=== PATIENT | female | born 1950 | race Caucasian/White ===

== ENCOUNTER → 2017-11-23 | Outpatient (CLI) | payer BC, MEDICARE ==
[~2017-11-23] MED LIST: OMNIPAQUE 350 MG/ML, 100ML BOTTLE ONE
== END | disposition home or self-care (01) ==
LOC: CFH 11:50
PROVIDERS: ATTEND Thoracic Surgery (Cardiothoracic Vascular Surgery)
DX: I35.8 Other nonrheumatic aortic valve disorders (principal); I71.2 Thoracic aortic aneurysm, without rupture
CPT/HCPCS: 71275; Q9967

== ENCOUNTER 2017-11-29 11:38 | Inpatient (IN) | payer MEDICARE, BC ==
[~2017-11-29] VITALS: Ht 157.5 cm; Wt 87.6 kg
[2017-11-29 14:47] LABS: MICROSCOPIC NOT IND
[2017-11-29 14:49] LABS: BASOPHILS # (AUTO) 0.03 x10^3/uL (0-0.1); BASOPHILS % (AUTO) 0 % (0-1); EOSINOPHILS # (AUTO) 0.04 x10^3/uL (0-0.4); EOSINOPHILS % (AUTO) 1 % (1-7); LYMPHOCYTES # (AUTO) 1.53 x10^3/uL (1-3.4); LYMPHOCYTES % (AUTO) 22 % (22-44); MD NO; MEAN CORPUSCULAR HEMOGLOBIN 29.5 pg (27.0-34.8); MEAN CORPUSCULAR HGB CONC 33.7 g/dL (32.4-35.8); MEAN CORPUSCULAR VOLUME 87.6 fL (80-100); MEAN PLATELET VOLUME 8.5 fL (7.4-10.4); MONOCYTES % (AUTO) 7 % (2-9); NEUTROPHILS % (AUTO) 70 % (42-75); PLATELET COUNT 249 x10^3/uL (130-400); RED BLOOD COUNT 5.12 x10^6/uL (3.82-5.3); RED CELL DISTRIBUTION WIDTH 13.9 % (9.6-15.2)
[2017-11-29 14:54] LABS: INTERNATIONAL NORMALIZED RATIO 0.97 (0.93-1.1)
[2017-11-29] MEDS ORDERED: OMEP20TA62 PO (14:54)
[2017-11-29 14:57] LABS: ANION GAP 8 mmol/L (5-15); CALCIUM 9.6 mg/dL (8.5-10.1); CHLORIDE 103 mmol/L (98-107)
[2017-11-29 15:00] LABS: ALANINE AMINOTRANSFERASE 28 U/L (12-78); ALKALINE PHOSPHATASE 107 U/L (45-117); BILIRUBIN,TOTAL 0.5 mg/dL (0.2-1.0); CREATININE 0.86 mg/dL (0.55-1.02); TOTAL PROTEIN 7.9 g/dL (6.4-8.2)
[2017-11-29 15:24] LABS: HEMOGLOBIN A1C 5.9 % (4.2-6.3)
[2017-11-30 04:38] VITALS: BP_SYST 125; BP_SYST 130; BP_DIAS 84; BP_DIAS 86
[2017-11-30] MEDS ORDERED: CHLORHEXIDINE 15 ML BOTTLE MM SCH (05:00)
[2017-11-30] MEDS ORDERED: ALBUMIN HUMAN 5% 500 ML IV PRN (05:00)
[2017-11-30] MEDS ORDERED: INSULIN LISPRO 100 UNITS/ML, PEN SQ-INSULIN SCH (05:00)
[2017-11-30] MEDS ORDERED: FENTANYL PF 250 MCG/5ML ONE ×4 (06:39→06:40)
[2017-11-30] MEDS ORDERED: MIDAZOLAM 10MG/2 ML ONE (06:39)
[2017-11-30] MEDS ORDERED: EPINEPHRINE 2 MG in SODIUM CHLORIDE 0.9% 248 ML IV SCH (07:30)
[2017-11-30] MEDS ORDERED: PHENYLEPHRINE 10 MG in SODIUM CHLORIDE 0.9% 249 ML IV PRN ×2 (07:30→10:20)
[2017-11-30] MEDS ORDERED: POTASSIUM CHLORIDE 80 MEQ, SODIUM BICARBONATE 8.4% 10 MEQ, MAGNESIUM SULFATE 0.5 GM, LI... IV PRN (07:30)
[2017-11-30] MEDS ORDERED: CEFUROXIME 1.5 GM in SODIUM CHLORIDE 0.9% 50 ML IVPB PRN (07:30)
[2017-11-30] MEDS ORDERED: VANCOMYCIN 1,400 MG in SODIUM CHLORIDE 0.9% 250 ML IV PRN (07:30)
[2017-11-30] MEDS ORDERED: DEXMEDETOMIDINE 200 MCG in SODIUM CHLORIDE 0.9% 48 ML IV SCH (07:30)
[2017-11-30] MEDS ORDERED: MANNITOL PMX 20% 500 ML IVPB PRN (07:30)
[2017-11-30] MEDS ORDERED: REGULAR INSULIN 62.5 UNITS in SODIUM CHLORIDE 0.9% 249.375 ML IV PRN ×2 (07:30→10:20)
[2017-11-30] MEDS ORDERED: SODIUM CHLORIDE FLUSH 10ML SYR IVF SCH (09:00)
[2017-11-30] MEDS: DOCUSATE 100 MG CAPSULE PO SCH ×2 (09:00→21:25)
[2017-11-30] MEDS ORDERED: MUPIROCIN OINT 2%, 22GM TP SCH (09:00)
[2017-11-30] MEDS ORDERED: VASOPRESSIN 20 UNIT/ML, 1ML ONE (09:10)
[2017-11-30] MEDS ORDERED: CALCIUM CHLORIDE 10%, 10ML SYR ONE (09:10)
[2017-11-30] MEDS ORDERED: ROCURONIUM 10MG/ML,5ML ONE ×3 (09:10)
[2017-11-30] MEDS ORDERED: PROTAMINE SULFATE 10 MG/ML, 25ML ONE ×2 (09:10)
[2017-11-30] MEDS ORDERED: PHENYLEPHRINE 10 MG/ML ONE (09:10)
[2017-11-30] MEDS ORDERED: PROPOFOL 10 MG/ML, 20ML ONE (09:10)
[2017-11-30] MEDS ORDERED: AMIODARONE 50 MG/ML, 3ML ONE (09:37)
[2017-11-30] MEDS ORDERED: SODIUM CHLORIDE 0.9% 1,000 ML IV PRN (10:20)
[2017-11-30] MEDS ORDERED: VASOPRESSIN 50 UNIT in SODIUM CHLORIDE 0.9% 247.5 ML IV PRN (10:20)
[2017-11-30] MEDS ORDERED: DOBUTAMINE 250 MG in SODIUM CHLORIDE 0.9% 230 ML IV PRN (10:20)
[2017-11-30] MEDS ORDERED: DEXMEDETOMIDINE 200 MCG in SODIUM CHLORIDE 0.9% 48 ML IV PRN (10:20)
[2017-11-30] MEDS ORDERED: NITROGLYCERIN/D5W PMX 250 ML IV PRN (10:20)
[2017-11-30] MEDS ORDERED: BISACODYL 10 MG SUPP PR PRN (10:30)
[2017-11-30] MEDS ORDERED: MAGNESIUM SULFATE 1 GM in SODIUM CHLORIDE 0.9% 50 ML IVPB SCH (10:30)
[2017-11-30] MEDS ORDERED: DEXTROSE 4 GM TAB.CHEW PO PRN (10:30)
[2017-11-30] MEDS ORDERED: PROCHLORPERAZINE 5 MG/ML, 2ML IVPush PRN (10:30)
[2017-11-30] MEDS ORDERED: DEXTROSE 50%, 50ML SYRINGE IVPush PRN (10:30)
[2017-11-30] MEDS ORDERED: morphine SULFATE 10 MG/ML, 1ML IVPush PRN (10:30)
[2017-11-30] MEDS ORDERED: EPINEPHRINE 2 MG in SODIUM CHLORIDE 0.9% 248 ML IV PRN (10:30)
[2017-11-30] MEDS ORDERED: MIDAZOLAM 1 MG/ML, 5ML IVPush PRN (10:30)
[2017-11-30] MEDS ORDERED: ACETAMINOPHEN 325 MG TABLET PO PRN (10:30)
[2017-11-30] MEDS ORDERED: HYDROcodone/APAP 5/325 TABLET PO PRN (10:30)
[2017-11-30] MEDS ORDERED: LACTATED RINGERS 1,000 ML IV PRN (10:30)
[2017-11-30] MEDS ORDERED: INSULIN REGULAR 100 UNITS/ML, 3ML VIAL IVPush PRN (10:30)
[2017-11-30] MEDS ORDERED: ACETAMINOPHEN 650 MG SUPP PR PRN (10:30)
[2017-11-30] MEDS ORDERED: GLUCAGON 1 MG IM PRN (10:30)
[2017-11-30] MEDS ORDERED: HYDROcodone/APAP 10/325 MG TABLET PO PRN (10:30)
[2017-11-30] MEDS: KSCALE TO 4.5 IV SCH ×3 (10:30→22:30)
[2017-11-30] MEDS ORDERED: FENTANYL PF 100 MCG/2ML IVPush PRN (10:30)
[2017-11-30] MEDS ORDERED: SODIUM BICARB 8.4%, 50ML SYRINGE IV PRN (10:30)
[2017-11-30] MEDS ORDERED: LIDOCAINE 2% 100MG/5ML SYRINGE ONE (10:39)
[2017-11-30] MEDS ORDERED: HEPARIN 1,000 UNITS/ML, 30ML ONE (10:39)
[2017-11-30] MEDS ORDERED: SODIUM BICARBONATE 1 MEQ/ML, 50ML VIAL ONE (10:39)
[2017-11-30] MEDS ORDERED: ALBUMIN HUMAN 25% 50 ML ONE (10:40)
[2017-11-30] MEDS: INSULIN LISPRO 100 UNITS/ML, PEN SQ-INSULIN SCH ×4 (11:00→18:41)
[2017-11-30 11:02] LABS: GLUCOSE BY BLOOD GAS ANALYZER 151 mg/dL (70-110); HEMOGLOBIN BY BLOOD GAS ANALYZ 11.8 g/dL (14.0-18.0); POTASSIUM BY BLOOD GAS ANALYZR 3.1 mmol/L (3.6-5.5)
[2017-11-30 11:03] LABS: FIO2 80 %
[2017-11-30 11:14] LABS: INTERNATIONAL NORMALIZED RATIO 1.39 (0.93-1.1); PROTHROMBIN TIME 14.2 Seconds (9.6-11.5)
[2017-11-30] MEDS: MAGNESIUM SULFATE 1 GM in SODIUM CHLORIDE 0.9% 25 ML IVPB SCH (13:36)
[2017-11-30] MEDS ORDERED: POTASSIUM CHLORIDE 30 MEQ in SODIUM CHLORIDE 0.9% 100 ML IV ONE (14:00)
[2017-11-30] MEDS: ONDANSETRON 2MG/ML, 2ML IVPush PRN ×2 (16:12→23:46)
[2017-11-30] MEDS: OXYcodone IR 5MG TABLET PO PRN ×2 (17:04→22:01)
[2017-11-30] MEDS: VANCOMYCIN 1,300 MG in SODIUM CHLORIDE 0.9% 250 ML IVPB SCH (18:28)
[2017-11-30] MEDS: CEFUROXIME 1.5 GM in SODIUM CHLORIDE 0.9% 50 ML IVPB SCH (19:29)
[2017-11-30] MEDS: MUPIROCIN OINT 2%, 22GM NAS SCH (21:25)
[2017-11-30] MEDS: SODIUM CHLORIDE FLUSH 10ML SYR IVF SCH (21:25)
[2017-11-30] MEDS ORDERED: POTASSIUM CHLORIDE PMX 100 ML IV ONE (23:30)
[2017-12-01] MEDS: OXYcodone IR 5MG TABLET PO PRN ×6 (01:03→21:00)
[2017-12-01] MEDS: KSCALE TO 4.5 IV SCH (04:30)
[2017-12-01 05:00] LABS: BASOPHILS # (AUTO) 0.02 x10^3/uL (0-0.1); BASOPHILS % (AUTO) 0 % (0-1); EOSINOPHILS % (AUTO) 0 % (1-7); LYMPHOCYTES # (AUTO) 0.59 x10^3/uL (1-3.4); LYMPHOCYTES % (AUTO) 6 % (22-44); MD NO; MEAN CORPUSCULAR HEMOGLOBIN 29.4 pg (27.0-34.8); MEAN CORPUSCULAR HGB CONC 33.7 g/dL (32.4-35.8); MEAN CORPUSCULAR VOLUME 87.4 fL (80-100); MEAN PLATELET VOLUME 8.4 fL (7.4-10.4); MONOCYTES # (AUTO) 0.91 x10^3/uL (0.2-0.8); MONOCYTES % (AUTO) 10 % (2-9); NEUTROPHILS # (AUTO) 7.89 x10^3/uL (1.8-6.8); NEUTROPHILS % (AUTO) 84 % (42-75); PLATELET COUNT 110 x10^3/uL (130-400); RED BLOOD COUNT 3.49 x10^6/uL (3.82-5.3); RED CELL DISTRIBUTION WIDTH 14.4 % (9.6-15.2)
[2017-12-01 05:11] LABS: CHLORIDE 114 mmol/L (98-107)
[2017-12-01 05:17] LABS: INTERNATIONAL NORMALIZED RATIO 1.08 (0.93-1.1); PROTHROMBIN TIME 11.1 Seconds (9.6-11.5)
[2017-12-01 05:19] LABS: ANION GAP 8 mmol/L (5-15); CALCIUM 7.8 mg/dL (8.5-10.1); CREATININE 0.54 mg/dL (0.55-1.02)
[2017-12-01] MEDS ORDERED: MAGNESIUM HYDROXIDE 8%, 30ML UDC PO PRN (07:30)
[2017-12-01] MEDS: DOCUSATE 100 MG CAPSULE PO SCH ×2 (07:32→21:00)
[2017-12-01] MEDS: ASPIRIN 81 MG TABLET EC PO SCH (07:32)
[2017-12-01 08:04] VITALS: BP 103/54
[2017-12-01] MEDS: VANCOMYCIN 1,300 MG in SODIUM CHLORIDE 0.9% 250 ML IVPB SCH (08:38)
[2017-12-01] MEDS: CEFUROXIME 1.5 GM in SODIUM CHLORIDE 0.9% 50 ML IVPB SCH (08:38)
[2017-12-01] MEDS: WARFARIN BIOPROSTHETIC VALVE PROTOCOL 2-3 XX SCH (09:00)
[2017-12-01] MEDS: SODIUM CHLORIDE FLUSH 10ML SYR IVF SCH ×2 (09:00→21:16)
[2017-12-01] MEDS: MUPIROCIN OINT 2%, 22GM NAS SCH ×2 (09:00→21:16)
[2017-12-01] MEDS: OMEPRAZOLE 20 MG CAPSULE.DR PO SCH (10:17)
[2017-12-01] MEDS: FUROSEMIDE 40 MG/4 ML IV SCH (10:17)
[2017-12-01] MEDS: POTASSIUM CHLORIDE 20 MEQ TAB.ER.PRT PO SCH (10:17)
[2017-12-01] MEDS: CHLORHEXIDINE 15 ML BOTTLE MM SCH ×2 (10:30→21:00)
[2017-12-01] MEDS: INSULIN LISPRO 100 UNITS/ML, PEN SQ-INSULIN SCH ×3 (11:10→21:00)
[2017-12-01] MEDS: MAGNESIUM SULFATE 1 GM in SODIUM CHLORIDE 0.9% 25 ML IVPB SCH (11:39)
[2017-12-01 14:41] VITALS: BP 116/75
[2017-12-01] MEDS ORDERED: WARFARIN 5 MG TABLET PO-COUM ONE (18:00)
[2017-12-01 18:35] VITALS: BP 107/73
[2017-12-01] MEDS ORDERED: SODIUM CHLORIDE FLUSH 10ML SYR IVF SCH (21:00)
[2017-12-01] MEDS ORDERED: DIPHENHYDRAMINE 50 MG CAPSULE PO PRN (22:00)
[2017-12-02 02:30] VITALS: BP 120/78
[2017-12-02] MEDS: OXYcodone IR 5MG TABLET PO PRN ×2 (03:35→06:20)
[2017-12-02 04:51] LABS: MEAN CORPUSCULAR HEMOGLOBIN 29.4 pg (27.0-34.8); MEAN CORPUSCULAR HGB CONC 33.4 g/dL (32.4-35.8); RED BLOOD COUNT 3.58 x10^6/uL (3.82-5.3); RED CELL DISTRIBUTION WIDTH 14.5 % (9.6-15.2)
[2017-12-02 04:59] LABS: INTERNATIONAL NORMALIZED RATIO 1.04 (0.93-1.1); PROTHROMBIN TIME 10.7 Seconds (9.6-11.5)
[2017-12-02 05:02] LABS: ANION GAP 6 mmol/L (5-15); CALCIUM 8.4 mg/dL (8.5-10.1); CHLORIDE 106 mmol/L (98-107)
[2017-12-02 05:04] LABS: CREATININE 0.53 mg/dL (0.55-1.02)
[2017-12-02 05:17] LABS: BASOPHILS # (AUTO) 0.03 x10^3/uL (0-0.1); BASOPHILS % (AUTO) 0 % (0-1); EOSINOPHILS # (AUTO) 0.01 x10^3/uL (0-0.4); EOSINOPHILS % (AUTO) 0 % (1-7); LYMPHOCYTES # (AUTO) 0.86 x10^3/uL (1-3.4); LYMPHOCYTES % (AUTO) 8 % (22-44); MD SCAN; MEAN PLATELET VOLUME 8.5 fL (7.4-10.4); MONOCYTES # (AUTO) 1.05 x10^3/uL (0.2-0.8); MONOCYTES % (AUTO) 9 % (2-9); NEUTROPHILS # (AUTO) 9.25 x10^3/uL (1.8-6.8); NEUTROPHILS % (AUTO) 83 % (42-75); PLATELET COUNT 94 x10^3/uL (130-400)
[2017-12-02 07:30] VITALS: BP 114/76
[2017-12-02] MEDS: INSULIN LISPRO 100 UNITS/ML, PEN SQ-INSULIN SCH ×4 (08:00→21:46)
[2017-12-02] MEDS: WARFARIN BIOPROSTHETIC VALVE PROTOCOL 2-3 XX SCH (09:00)
[2017-12-02] MEDS: POTASSIUM CHLORIDE 20 MEQ TAB.ER.PRT PO SCH (11:10)
[2017-12-02] MEDS: ASPIRIN 81 MG TABLET EC PO SCH (11:10)
[2017-12-02] MEDS: OMEPRAZOLE 20 MG CAPSULE.DR PO SCH (11:10)
[2017-12-02] MEDS: DOCUSATE 100 MG CAPSULE PO SCH ×2 (11:10→21:41)
[2017-12-02] MEDS: CHLORHEXIDINE 15 ML BOTTLE MM SCH ×2 (11:11→21:41)
[2017-12-02] MEDS: FUROSEMIDE 40 MG/4 ML IV SCH (11:11)
[2017-12-02] MEDS: MUPIROCIN OINT 2%, 22GM NAS SCH ×2 (11:11→21:42)
[2017-12-02] MEDS: SODIUM CHLORIDE FLUSH 10ML SYR IVF SCH ×2 (11:12→21:41)
[2017-12-02] MEDS: MAGNESIUM SULFATE 1 GM in SODIUM CHLORIDE 0.9% 25 ML IVPB SCH (11:29)
[2017-12-02] MEDS: ONDANSETRON 2MG/ML, 2ML IVPush PRN (13:26)
[2017-12-02 13:59] VITALS: BP 108/74
[2017-12-02] MEDS: ENOXAPARIN 40 MG/0.4 ML SQ SCH (15:20)
[2017-12-02] MEDS ORDERED: WARFARIN 5 MG TABLET PO-COUM SCH (18:00)
[2017-12-02 19:52] VITALS: BP 110/74
[2017-12-03 00:27] VITALS: BP 102/68
[2017-12-03 04:41] LABS: BASOPHILS # (AUTO) 0.03 x10^3/uL (0-0.1); BASOPHILS % (AUTO) 0 % (0-1); EOSINOPHILS # (AUTO) 0.03 x10^3/uL (0-0.4); EOSINOPHILS % (AUTO) 0 % (1-7); LYMPHOCYTES # (AUTO) 1.25 x10^3/uL (1-3.4); LYMPHOCYTES % (AUTO) 14 % (22-44); MD NO; MEAN CORPUSCULAR HEMOGLOBIN 29.5 pg (27.0-34.8); MEAN CORPUSCULAR HGB CONC 33.3 g/dL (32.4-35.8); MEAN CORPUSCULAR VOLUME 88.5 fL (80-100); MEAN PLATELET VOLUME 8.1 fL (7.4-10.4); MONOCYTES # (AUTO) 0.83 x10^3/uL (0.2-0.8); MONOCYTES % (AUTO) 9 % (2-9); NEUTROPHILS # (AUTO) 7.01 x10^3/uL (1.8-6.8); NEUTROPHILS % (AUTO) 77 % (42-75); PLATELET COUNT 104 x10^3/uL (130-400); RED BLOOD COUNT 3.38 x10^6/uL (3.82-5.3); RED CELL DISTRIBUTION WIDTH 14.1 % (9.6-15.2)
[2017-12-03 04:42] LABS: ANION GAP 7 mmol/L (5-15); CALCIUM 8.3 mg/dL (8.5-10.1); CHLORIDE 103 mmol/L (98-107); CREATININE 0.48 mg/dL (0.55-1.02)
[2017-12-03] MEDS: INSULIN LISPRO 100 UNITS/ML, PEN SQ-INSULIN SCH ×2 (07:00→11:00)
[2017-12-03 07:41] VITALS: BP 107/65
[2017-12-03] MEDS: MUPIROCIN OINT 2%, 22GM NAS SCH ×2 (08:14→20:34)
[2017-12-03] MEDS: BISACODYL 5 MG EC TABLET PO PRN (08:14)
[2017-12-03] MEDS: FUROSEMIDE 40 MG/4 ML IV SCH (08:14)
[2017-12-03] MEDS: POTASSIUM CHLORIDE 20 MEQ TAB.ER.PRT PO SCH (08:14)
[2017-12-03] MEDS: SODIUM CHLORIDE FLUSH 10ML SYR IVF SCH ×2 (08:14→20:34)
[2017-12-03] MEDS: OMEPRAZOLE 20 MG CAPSULE.DR PO SCH (08:14)
[2017-12-03] MEDS: DOCUSATE 100 MG CAPSULE PO SCH ×2 (08:14→20:34)
[2017-12-03] MEDS: ASPIRIN 81 MG TABLET EC PO SCH (08:14)
[2017-12-03 08:15] LABS: INTERNATIONAL NORMALIZED RATIO 1.19 (0.93-1.1); PROTHROMBIN TIME 12.2 Seconds (9.6-11.5)
[2017-12-03] MEDS: WARFARIN BIOPROSTHETIC VALVE PROTOCOL 2-3 XX SCH (09:00)
[2017-12-03 14:30] VITALS: BP 123/81
[2017-12-03] MEDS: ENOXAPARIN 40 MG/0.4 ML SQ SCH (17:37)
[2017-12-03] MEDS ORDERED: WARFARIN 5 MG TABLET PO-COUM SCH (18:00)
[2017-12-03 18:57] VITALS: BP 119/79
[2017-12-04 00:15] VITALS: BP 112/74
[2017-12-04] MEDS: BISACODYL 5 MG EC TABLET PO PRN (06:19)
[2017-12-04 06:45] VITALS: BP 134/83
[2017-12-04 06:53] LABS: BASOPHILS # (AUTO) 0.07 x10^3/uL (0-0.1); BASOPHILS % (AUTO) 1 % (0-1); EOSINOPHILS # (AUTO) 0.08 x10^3/uL (0-0.4); EOSINOPHILS % (AUTO) 1 % (1-7); LYMPHOCYTES # (AUTO) 1.24 x10^3/uL (1-3.4); LYMPHOCYTES % (AUTO) 20 % (22-44); MD NO; MEAN CORPUSCULAR HEMOGLOBIN 29.5 pg (27.0-34.8); MEAN CORPUSCULAR HGB CONC 33.9 g/dL (32.4-35.8); MEAN CORPUSCULAR VOLUME 87.1 fL (80-100); MEAN PLATELET VOLUME 7.7 fL (7.4-10.4); MONOCYTES # (AUTO) 0.71 x10^3/uL (0.2-0.8); MONOCYTES % (AUTO) 12 % (2-9); NEUTROPHILS # (AUTO) 4.07 x10^3/uL (1.8-6.8); NEUTROPHILS % (AUTO) 66 % (42-75); PLATELET COUNT 144 x10^3/uL (130-400); RED BLOOD COUNT 3.56 x10^6/uL (3.82-5.3); RED CELL DISTRIBUTION WIDTH 13.6 % (9.6-15.2)
[2017-12-04 07:02] LABS: ANION GAP 7 mmol/L (5-15); CALCIUM 8.8 mg/dL (8.5-10.1); CHLORIDE 99 mmol/L (98-107); CREATININE 0.46 mg/dL (0.55-1.02)
[2017-12-04 07:40] LABS: INTERNATIONAL NORMALIZED RATIO 1.51 (0.93-1.1); PROTHROMBIN TIME 15.4 Seconds (9.6-11.5)
[2017-12-04] MEDS: FUROSEMIDE 40 MG/4 ML IV SCH (07:42)
[2017-12-04] MEDS: POTASSIUM CHLORIDE 20 MEQ TAB.ER.PRT PO SCH (07:42)
[2017-12-04] MEDS: ASPIRIN 81 MG TABLET EC PO SCH (07:42)
[2017-12-04] MEDS: SODIUM CHLORIDE FLUSH 10ML SYR IVF SCH ×2 (07:42→21:04)
[2017-12-04] MEDS: DOCUSATE 100 MG CAPSULE PO SCH ×2 (07:42→21:01)
[2017-12-04] MEDS: OMEPRAZOLE 20 MG CAPSULE.DR PO SCH (07:43)
[2017-12-04] MEDS: WARFARIN BIOPROSTHETIC VALVE PROTOCOL 2-3 XX SCH (09:00)
[2017-12-04] MEDS: MUPIROCIN OINT 2%, 22GM NAS SCH ×2 (12:52→21:01)
[2017-12-04] MEDS ORDERED: WARFARIN 7.5 MG TABLET PO-COUM ONE (15:38)
[2017-12-04] MEDS: ENOXAPARIN 40 MG/0.4 ML SQ SCH (15:40)
[2017-12-04 15:53] VITALS: BP 133/84
[2017-12-04] MEDS ORDERED: WARFARIN 7.5 MG TABLET PO-COUM SCH (18:00)
[2017-12-04 19:51] VITALS: BP 104/70
[2017-12-05 03:02] VITALS: BP 129/85
[2017-12-05 05:18] LABS: INTERNATIONAL NORMALIZED RATIO 1.94 (0.93-1.1); PROTHROMBIN TIME 19.7 Seconds (9.6-11.5)
[2017-12-05 05:19] LABS: BASOPHILS # (AUTO) 0.03 x10^3/uL (0-0.1); BASOPHILS % (AUTO) 1 % (0-1); EOSINOPHILS # (AUTO) 0.11 x10^3/uL (0-0.4); EOSINOPHILS % (AUTO) 2 % (1-7); LYMPHOCYTES # (AUTO) 0.95 x10^3/uL (1-3.4); LYMPHOCYTES % (AUTO) 17 % (22-44); MD NO; MEAN CORPUSCULAR HGB CONC 33.2 g/dL (32.4-35.8); MEAN CORPUSCULAR VOLUME 87.4 fL (80-100); MEAN PLATELET VOLUME 7.6 fL (7.4-10.4); MONOCYTES # (AUTO) 0.72 x10^3/uL (0.2-0.8); MONOCYTES % (AUTO) 13 % (2-9); NEUTROPHILS # (AUTO) 3.69 x10^3/uL (1.8-6.8); NEUTROPHILS % (AUTO) 67 % (42-75); PLATELET COUNT 170 x10^3/uL (130-400); RED BLOOD COUNT 3.71 x10^6/uL (3.82-5.3); RED CELL DISTRIBUTION WIDTH 13.7 % (9.6-15.2)
[2017-12-05 05:21] LABS: ANION GAP 6 mmol/L (5-15); CALCIUM 8.7 mg/dL (8.5-10.1); CHLORIDE 99 mmol/L (98-107)
[2017-12-05 05:23] LABS: CREATININE 0.57 mg/dL (0.55-1.02)
[2017-12-05] MEDS: POTASSIUM CHLORIDE 20 MEQ TAB.ER.PRT PO SCH (08:06)
[2017-12-05] MEDS: DOCUSATE 100 MG CAPSULE PO SCH (08:06)
[2017-12-05] MEDS: ASPIRIN 81 MG TABLET EC PO SCH (08:06)
[2017-12-05] MEDS: OMEPRAZOLE 20 MG CAPSULE.DR PO SCH (08:06)
[2017-12-05] MEDS: FUROSEMIDE 40 MG/4 ML IV SCH (08:09)
[2017-12-05] MEDS: MUPIROCIN OINT 2%, 22GM NAS SCH (08:09)
[2017-12-05] MEDS ORDERED: FURO10VI37 PO (08:10)
[2017-12-05] MEDS: SODIUM CHLORIDE FLUSH 10ML SYR IVF SCH (08:10)
[2017-12-05] MEDS ORDERED: TRAM50TA2 PO (08:10)
[2017-12-05] MEDS ORDERED: ASPI-621 PO (08:10)
[2017-12-05] MEDS ORDERED: WARF5TAB PO-COUM (08:10)
[2017-12-05] MEDS ORDERED: POTA20TA6 PO (08:10)
[2017-12-05 08:14] VITALS: BP 139/89
[2017-12-05] MEDS ORDERED: WARFARIN 5 MG TABLET PO-COUM ONE (12:46)
[2017-12-05] MEDS ORDERED: WARFARIN 5 MG TABLET PO-COUM SCH (18:00)
== END 2017-12-05 13:55 | disposition home health service (06) | DRG 220 ==
LOC: UNDOADMIN 11:38 → ORIP 11:38 → 5SO 11-30 04:44 → CSU 11-30 08:18 → CCU 11-30 10:42 → 5SO 12-01 11:56
PROVIDERS: ADMIT Thoracic Surgery (Cardiothoracic Vascular Surgery); ATTEND Thoracic Surgery (Cardiothoracic Vascular Surgery)
PROC: 02QX0ZZ Repair Thoracic Aorta, Ascending/Arch, Open Approach (ICD-10-PCS; 2017-11-30)
PROC: 5A1221Z Performance of Cardiac Output, Continuous (ICD-10-PCS; 2017-11-30)
PROC: B246ZZ4 Ultrasonography of Right and Left Heart, Transesophageal (ICD-10-PCS; 2017-11-30)
PROC: 02RF08Z Replacement of Aortic Valve with Zooplastic Tissue, Open Approach (ICD-10-PCS; principal; 2017-11-30 07:30)
DX: I35.0 Nonrheumatic aortic (valve) stenosis (principal); J98.11 Atelectasis; I71.2 Thoracic aortic aneurysm, without rupture; E66.9 Obesity, unspecified; E78.5 Hyperlipidemia, unspecified; F39 Unspecified mood [affective] disorder; I70.0 Atherosclerosis of aorta; Z86.79 Personal history of other diseases of the circulatory system; Z68.35 Body mass index [BMI] 35.0-35.9, adult
CPT/HCPCS: 36415; 36600; 71045; 71046; 80048; 80053; 81003; 82040; 82330; 82800; 82803; 82810; 82947; 82962; 83036; 83735; 84132; 84295; 85014; 85018; 85025; 85049; 85347; 85610; 85730; 86850; 86900; 86923; 87081; 88304; 88305; 93005; 93318; 93321; 93325; 93880; 94002; C1768; J0697; J1644; J1650; J1815; J1940; J2250; J2405; J2704; J2720; J3010; J3370; J3475; J3480; J3490; P9045; P9047; C1751; C1760; J0171; J0282; J2270; J2370; J7050; J7120